=== PATIENT | female | born 1955 | race Caucasian/White ===

== ENCOUNTER 2017-01-14 07:23 | Day surgery (SDC) | payer BC ==
[2017-01-14] MEDS ORDERED: PROPOFOL 500 MG/50 ML EMU IV ONE (07:48)
[2017-01-14] MEDS ORDERED: LIDOCAINE HCL 1% MPF SOL ONE ×2 (08:26→11:07)
[2017-01-14] MEDS ORDERED: PROPOFOL 10 MG/ML EMU IV ONE (08:44)
[2017-01-14] MEDS ORDERED: KETOROLAC TROMETHAMINE 30 MG/ML SOL ONE (09:25)
[2017-01-14] MEDS ORDERED: ONDANSETRON HCL 4 MG/2 ML SOL ONE (09:25)
[2017-01-14 09:41] VITALS: RESP 20
[2017-01-14 09:54] VITALS: TEMP 96.8
[2017-01-14 10:25] VITALS: BP 110/72; PULSE 54; O2SAT 98
[2017-01-14] MEDS ORDERED: BUPIVACAINE HCL 0.5% MPF 10 ML SOL ONE (11:07)
== END 2017-01-14 10:35 | disposition home or self-care (01) ==
LOC: SURG 07:23
PROVIDERS: ATTEND Surgery
DX: Z12.11 Encounter for screening for malignant neoplasm of colon (principal); Z86.010 Personal history of colon polyps; K63.5 Polyp of colon
CPT/HCPCS: 45385; 99001; J1885; J2001 ×2; J2405; J2704 ×2